=== PATIENT | female | born 1995 ===

== ENCOUNTER 2019-07-31 10:26 | Inpatient (IN) | payer OTHER ==
[~2019-07-31] VITALS: Ht 165.1 cm; Wt 72.6 kg
[~2019-07-31 10:26] MED LIST: BICARSIM FORTE125 MG PO; GILTUSS TR TAB1 EACH PO; HYDROXYZINE PAM50 MG PO; LEVSIN/SL0.125 MG SL; NIFEDIPINE ER30 MG PO; NON-ASPIRIN EX500 M1; PRENATABS RX T1 EACH PO; PRENATAL TABLE1 EAC2 PO; ZITHROMAX TRI-500 MG PO; [UNRECOGNIZED DRUG - OTHER]
== END 2019-08-02 13:03 | disposition home or self-care (01) | DRG 807 ==
LOC: OB/GYN 10:26 → LDR 10:26 → OB/GYN 11:26
PROVIDERS: ADMIT Obstetrics & Gynecology
PROC: 10E0XZZ Delivery of Products of Conception, External Approach (ICD-10-PCS; principal; 2019-07-31)
PROC: 10907ZC Drainage of Amniotic Fluid, Therapeutic from Products of Conception, Via Natural or Artificial Opening (ICD-10-PCS; 2019-07-31)
PROC: 4A1HXCZ Monitoring of Products of Conception, Cardiac Rate, External Approach (ICD-10-PCS; 2019-07-31)
DX: O80 Encounter for full-term uncomplicated delivery (principal); Z37.0 Single live birth; Z3A.37 37 weeks gestation of pregnancy